=== PATIENT | female | born 1970 | race Hispanic/Latino ===

== ENCOUNTER 2017-02-15 09:20 | Emergency (ER) | payer BC ==
[2017-02-15 09:23] VITALS: BMI 32.5
[2017-02-15 09:25] VITALS: BP 188/84; PULSE 92; RESP 18; TEMP 98.6; O2SAT 98
[2017-02-15] MEDS ORDERED: Morphine 4 MG/ML VIAL IM STA (09:54)
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
[2017-02-15] MEDS ORDERED: Morphine 4 MG/ML VIAL ONE (10:52)
--- NOTE | 2017-02-15 11:39 | RAD ---
HISTORY: R back pain COMPARISON: None available. TECHNIQUE: Chest PA and lateral FINDINGS: Examination limited by habitus. LUNGS: No focal consolidation. Please note that chest x-ray has limited sensitivity for the detection of pulmonary masses. PLEURA: No significant pleural effusion identified. No definite pneumothorax . CARDIOVASCULAR: The cardiomediastinal silhouette appears within normal limits of size. OSSEOUS STRUCTURES: No acute osseous abnormality identified. VISUALIZED UPPER ABDOMEN: Unremarkable. OTHER FINDINGS: None. IMPRESSION: No focal consolidation, significant pleural effusion, or definite pneumothorax identified.
[2017-02-15] MEDS ORDERED: guaiFENesin DM 200 mg-20 mg/10 ml UD PO STA (11:45)
[2017-02-15] MEDS ORDERED: guaiFENesin 100 mg/5 ml Syrup UD ONE (11:49)
--- NOTE | 2017-02-15 15:07 | RAD ---
PROCEDURE: Radiographs of the Chest and Right Ribs. HISTORY: R lateral rib pain COMPARISON: Chest x-ray performed 02/15/17 TECHNIQUE: Frontal radiograph of the chest and multiple oblique radiographs of the right ribs were obtained. FINDINGS: Examination limited by habitus. RIGHT RIBS: Displaced right 7th rib fracture. LUNGS: No focal consolidation. PLEURA: No significant pleural effusion. No definite pneumothorax. CARDIOVASCULAR: Heart size appears within normal limits. OTHER FINDINGS: None. IMPRESSION: Displaced right 7th rib fracture.
== END 2017-02-15 14:23 | disposition home or self-care (01) ==
LOC: H.ER 09:20
DX: S22.31XA Fracture of one rib, right side, initial encounter for closed fracture (principal); X50.9XXA Other and unspecified overexertion or strenuous movements or postures, initial encounter
CPT/HCPCS: 71020; 71101; 81025; 96372; 99282; J2270